=== PATIENT | male | born 1980 ===

== ENCOUNTER 2016-07-15 07:41 | Day surgery (SDC) | payer BC ==
[2016-07-15] VITALS (8 sets, daily range): BP systolic 91–136; BP diastolic 57–84
[~2016-07-15] VITALS: Ht 180.3 cm; Wt 93.0 kg
--- NOTE | 2016-07-15 06:46 | Pre-Procedure Note/Attestation ---
Pre-Procedure Note/Attestation Complete Prior to Procedure Planned Procedure: left Procedure Narrative: Left knee scope, ACL reconstruction, medial and lateral meniscectomy and possibly microfracture chondroplasty Indications for Procedure Pre-Operative Diagnosis: left knee ACL tear, medial and lateral meniscus tear Attestation I attest that I discussed the nature of the procedure; its benefits; risks and complications; and alternatives (and the risks and benefits of such alternatives ), prior to the procedure, with the patient (or the patient's legal client account representative). I attest that, if there was a reasonable possibility of needing a blood transfusion, the patient (or the patient's legal client account representative) was given the [place] [facility] [employer] [facility] standardized written summary, pursuant to the Maximino Watsessing Blood Safety Act ([place] Health and Safety Code # 1645, as amended). I attest that I re-evaluated the patient just prior to the surgery and that there has been no change in the patient's H&P, except as documented below: NONE VAN TOPETE July 15, 2016 06:46
--- NOTE | 2016-07-15 07:21 | Anethesia Preoperative Eval ---
Anesthesia Pre-op PMH/ROS General Date of Evaluation: July 15, 2016 Anesthesiologist: Pipo ASA Score: ASA 1 Mallampati Score Class I : Soft palate, uvula, fauces, pillars visible Class II: Soft palate, uvula, fauces visible Class III: Soft palate, base of uvula visible Class IV: Only hard plate visible Mallampati Classification: Class II Surgeon: Elizabeth Diagnosis: Left knee internal derangement Surgical Procedure: Left knee arthroscopy and ACL repair Anesthesia History: none Family History: no anesthesia problems Allergies: Coded Allergies: No Known Allergies (Unverified , 07/10/16) Medications: see eMAR Past Medical History Cardiovascular: Denies: CAD, HTN, [place], arrhythmia, other, valve dz Pulmonary: Denies: COPD, GINA, asthma, other Gastrointestinal/Genitourinary: Denies: CRI, ESRD, GERD, other Neurologic/Psychiatric: Denies: CVA, TIA, dementia, depression/anxiety, other Endocrine: Denies: DM, hypothyroidism, other, steroids HEENT: Denies: BENTON (L), [place] (R), cataract (L), cataract (R), glaucoma, other Hematology/Immune: Denies: DVT, anemia, bleeding disorder, other Musculoskeletal/Integumentary: Denies: DDD, DJD, OA, RA, edema, other PSxH Narrative: [place] teeth sx Anesthesia Pre-op Phys. Exam Physician Exam see chart Constitutional: NAD Cardiovascular: RRR Respiratory: CTA Airway Exam Mallampati Score: Class II MO: full ROM: full Teeth: intact Anesthesia Pre-op A/P Labs see chart Risk Assessment & Plan Assessment: ASA I Plan: GA Status Change Before Surgery: No Pre-Antibiotics Drug: Ancef 2g Given Within 1 Hr of Incision: Yes - 09 Time Given: 09:00 MARTIN BARBA M.D. July 15, 2016 07:21
[~2016-07-15 07:41] MED LIST: NKM; ceFAZolin 1gm/50ml Premix 50 ML IV ONE; celeBREX 200mg Cap **SURGERY PATIENTS ONLY ORAL ONE; oxyCONTIN 20mg tab ORAL ONE
[2016-07-15] MEDS ORDERED: Ropivacaine 5mg/ml Vial 20ml INJ ONE ×2 (07:45→09:07)
[2016-07-15] MEDS ORDERED: Lidocaine 1% Plain 30 ml INJ ONE (08:19)
[2016-07-15] MEDS ORDERED: Bupivacaine w/Epi 0.5% 30ml Vial INJ ONE (08:20)
[2016-07-15] MEDS ORDERED: EPINEPHrine 1mg/1ml Amp ONE (08:25)
[2016-07-15] MEDS ORDERED: LR 1000ml 1,000 ML IV SCH (08:30)
[2016-07-15] MEDS ORDERED: fentaNYL 250mcg/5ml ONE (08:45)
[2016-07-15] MEDS ORDERED: Metoclopramide 10mg/2ml Inj ONE (08:45)
[2016-07-15] MEDS ORDERED: Dexamethasone 4mg/ml vial ONE (08:45)
[2016-07-15] MEDS ORDERED: LR 1000ml ONE (08:45)
[2016-07-15] MEDS ORDERED: NS Irrig 4000ml IRRIG ONE (08:45)
[2016-07-15] MEDS ORDERED: Midazolam 2mg/2ml Inj ONE (08:45)
[2016-07-15] MEDS ORDERED: Propofol 10mg/ml 20ml IV ONE (08:45)
[2016-07-15] MEDS ORDERED: Lidocaine 1% MPF 10mg/ml 5ml ONE (08:45)
[2016-07-15] MEDS ORDERED: Ketamine 500mg Inj ONE (08:45)
[2016-07-15] MEDS ORDERED: LR 1000ml 1,000 ML IVLG SCH (09:12)
[2016-07-15] MEDS ORDERED: fentaNYL 100 mcg/2 mL IV PRN (09:15)
[2016-07-15] MEDS ORDERED: Hydromorphone 0.5mg/0.5ml inj IVP PRN (09:15)
[2016-07-15] MEDS ORDERED: Ketorolac 30mg Inj IV PRN (09:15)
[2016-07-15] MEDS ORDERED: DiphenhydrAMINE 50mg/ml Inj IVP PRN (09:15)
[2016-07-15] MEDS ORDERED: D5 1/2NS 1,000 ML IV SCH (09:45)
[2016-07-15] MEDS ORDERED: HYDROmorphone 1mg/ml Carpuject SUBQ PRN (09:45)
[2016-07-15] MEDS ORDERED: Norco 5mg/325mg tab ORAL PRN (09:45)
[2016-07-15] MEDS ORDERED: Tylenol #3 tab (300mg/30mg) ORAL PRN (09:45)
--- NOTE | 2016-07-15 10:43 | Brief Operative Note ---
Immediate Post Operative Note Operative Note Chief Complaint: left knee pain Pre-op Diagnosis: left knee ACL tear medial and lateral meniscus tear Procedure: left knee scope, ACL reconstruction, medial and lateral meniscectomy and chondroplasty Post-op Diagnosis: same as pre-op Findings: consistent w/pre-op dx studies Surgeon: md darrin Power Plant Operator: sai muniz Anesthesiologist: md navjot Anesthesia: general Specimen: none Complications: none Condition: stable Estimated Blood Loss: minimal Drains: none Implant(s) used?: Yes - biomet DENITA MUNIZ July 15, 2016 10:43
--- NOTE | 2016-07-15 10:55 | Immediate Post-Op Evaluation ---
Immediate Post-Op Evalulation Immediate Post-Op Evalulation Procedure: Left knee arthroscopy, ACL repair Date of Evaluation: July 15, 2016 Time of Evaluation: 10:56 IV Fluids: 1.1L Blood Products: 0 Estimated Blood Loss: min Urinary Output: 0 Blood Pressure Systolic: 91 Blood Pressure Diastolic: 57 Pulse Rate: 73 Respiratory Rate: 16 O2 Sat by Pulse Oximetry: 100 Temperature (Fahrenheit): 98 Pain Score (1-10): 0 Nausea: No Vomiting: No Complications 0 Patient Status: awake, reacts, patent, none Hydration Status: adequate Drug: Ancef 2g Given Within 1 Hr of Incision: Yes Time Given: 09:00 MARTIN BARAB M.D. July 15, 2016 10:55
--- NOTE | 2016-07-15 22:01 | Operative Note - Dictated ---
DATE OF OPERATION: 07/15/2016 SURGERY DATE: 07/15/2016 PREOPERATIVE DX: 1. Left knee anterior cruciate ligament tear. 2. Possible left knee lateral meniscus tear. 3. 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 POSTOPERATIVE DX: 1. Left knee loose fragment in the lateral gutter as well as suprapatellar pouch measuring 7 mm chondral loose fragments floating around the knee. 2. 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 3. Left knee complete anterior cruciate ligament tear. 4. Left knee lateral meniscus tearing involving 10% of junction of posterior horn body of lateral meniscus. 5. No evidence of medial meniscus tear. PROCEDURES: 1. Left knee arthroscopy and extensive intra-articular shaving. 2. Left knee resection of loose fragment suprapatellar pouch as well as lateral gutter. 3. Left knee chondroplasty of the trochlea with resection of unstable chondral flaps. 4. Left knee partial lateral meniscectomy involving 10% of the lateral meniscus at the junction of body and posterior horn. 5. Left knee anterior cruciate ligament reconstruction using tibialis anterior allograft, 10 mm graft with the femoral toggle lock fixation, and tibial AperFix II cannulated PEEK implant 10 x 30 mm. SURGEON: Jose Carlos Johnson M.D. HIGH SCHOOL SCIENCE TUTOR: Tawanna Teran PA-C. Process Design Chemical Engineer was present during the actual operative portion of the case and was important and essential part of the operation. During the operation, the administrative office assistant held and operated the arthroscopic camera for visualization, assisted by manipulating the leg to help with visualization, and helped with essential parts of the repair process as necessary such as operating surgical instruments under surgeon supervision, suture management, and wound closures. ANESTHESIOLOGIST: Dr. Edward. ANESTHESIA: General LMA anesthesia combined with femoral block for postoperative pain management. EBL: Less than 20 mL. TOURNIQUET TIME: 65 minutes. COMPLICATIONS: None. BRIEF HISTORY: The patient is a pleasant 4-year-old gentleman who sustained a left knee ACL tear. MRI showed ACL tear and possible medial and lateral meniscus tear. SURGICAL INDICATION: The patient is a 36-year-old male who sustained the above injury to his knee. The patient was treated non-operative initially, but this did not alleviate the patients symptoms. Therefore, after discussing all non-surgical and surgical options, and discussing all foreseeable risk and benefits of surgery, the patient opted for surgical treatment as described above. PATIENT POSITIONING: Patient was brought to the operating room table and placed supine. All pressure points were well padded. General Anesthesia was induced and a well padded tourniquet was placed on the thigh. The lateral post was placed and positioned to allow for opening of the medial compartment of the knee without placing pressure over the fibular head. Patients entire leg was prepped and draped in the usual sterile fashion. Time out was performed and preop abx was given and after exsanguinating the lower extremity, the tourniquet was inflated to 275 mm of mercury. EXAMINATION OF THE KNEE UNDER ANESTHESIA: Before prepping and draping the knee and while the patient was relaxed under general anesthesia, the knee was examined for ROM, and anterior and posterior, medial and lateral, posterolateral, and posteromedial instability. Pivot shift testing was performed. There was no loss of motion, although there was instability with positive anterior drawer and positive pivot shift testing. PORTAL PLACEMENT: The lateral portal was placed with the knee flexed to 90 degrees at the level of inferior border of the patella in line with the lateral border of the patella. A cm skin incision was made with an eleven blade, and using a blunt obturator, the capsule was gently penetrated. Sterile saline solution was then infused inside the knee with the aid of a pump set at 35 mm mercury pressure. Under direct visualization, placement of the medial portal was preliminary judged using a spinal needle, and it was subsequently established using the same technique as the lateral portal. Care was given not to injure the cutaneous branches of the medial Saphenous nerve or the subcutaneous veins. DIAGNOSTIC ARTHROSCOPY: The suprapatellar patellar pouch was visualized. There was a loose fragment in the suprapatellar pouch measuring 5 to 7 mm. The medial and lateral patellar facets and trochlear groove articular cartilage was visualized. There was a chondral damage on the trochlear groove without a stable chondral flap. This measured 2 x 2.5 cm. This was grade 4 chondromalacia. There was corresponding medial patellar facet chondral changes, but this was grade 2 chondromalacia. The medial plica shelf and the corresponding medial femoral condyle articular cartilage were visualized. There was no significantly thickening of the medial plica shelf and there were no kissing? lesion over the medial femoral condyle. The lateral gutter and the posterolateral corner of the knee were visualized. There was a loose fragment in the posterior lateral corner of the knee measuring 5 x 7 mm. At this point, the knee was placed in the figure of four position and the lateral compartment was entered. The lateral femoral condyle, lateral tibial plateau, and the anterior, body, and the posterior horn of the lateral meniscus were visualized and probed. There was some slight chondral damage over the lateral femoral condyle. There was no grade 4 chondromalacia however. There was a small tear at the junction of the posterior horn body of the lateral meniscus involving 10% to 15% lateral meniscus. The knee was then placed at 90 degree and the ACL and PCL were visualized and probed. There was a complete tear of the ACL. The PCL was completely intact on visualization and probing and it had excellent tension. The medial compartment was then entered and the medial femoral condyle, medial tibial plateau, and the anterior, body, and the posterior horn of the medial meniscus were visualized and probed. There was some chondral damage over the medial femoral condyle measuring 2 x 1 cm. There was some unstable chondral flap. This was grade 2 and 3 chondromalacia, but no grade 4 combination was noted. The medial meniscus was completely intact both on its undersurface and on the top. The medial gutter was visualized. There was no evidence of defect or loose fragments. The scope was then brought back to the patella femoral compartment. OPERATIVE ARTHROSCOPY: At this point, all loose debris and fragments were removed with the use of suction motorized shaver. Specific attention was given to assure all visible loose fragments were irrigated out of the knee joint with pump inflow and cannula outflow system. The loose fragments were identified and visualized. Using combination of the shaver, suction, and graspers, these loose fragments were removed. These loose fragments measured approximately 5 to 7 mm. All debris left behind was removed with combination of noah and graspers. The frayed articular cartilage of the undersurface of the patella and the trochlear groove were debrided using a motorized shaver. Suction was used to pull in the loose fragments and flaps of the cartilage and to minimize damage to the intact and well attached portion of the cartilage. This allowed for a smooth surface for the articular cartilage gliding. At this point, attention was given to the lateral meniscus. Using combination of baskets and noah, the torn portion of the lateral meniscus was removed. Attention was given to remove all displaced and unstable portion of the lateral meniscus while maintaining as much of the functional portion of the meniscus as possible. Approximately, 15% of the posterior horn body of the meniscus was removed in this fashion. The transition between the meniscectomy portion and intact portion of the meniscus was smoothed out with combination of small baskets and noah. Excellent transition zone was obtained in this fashion. Pursuant to preoperative discussion with the patient, an allograft was used for ACL reconstruction. A 28 cm medium sized non-irradiated allograft was obtained from the tissue bank. The graft was defrosted in warm saline solution in its plastic wrapping. The graft was then cultured and subsequently placed in a triple antibiotic solution prior to handling. The graft was then trimmed to total length of 220 mm. The two ends of the graft were secured with #2 FiberWire sutures placed using modified Krackaw technique up to 25 mm proximal to each end. All slack was removed from the stitched portion and the graft was placed on a graft tensioner wrapped in antibiotic soaked sponges in a safe place on the back table. Attention was then given to ACL reconstruction. The ACL remnant off of the tibial foot print and femoral notch was completely resected using a combination of suctioned electrocautery and noha. Care was given not to damage the transverse inter-meniscal ligament. Minimal notchplasty was performed using an aggressive 5.5 mm shaver just to be able to gain access and view the ACL attachment in the posterior aspect of the notch. The interns ridge was identified and debrided. The posterior aspect of the notch was then identified. This area was first debrided using a shaver and later cleaned off using a combination of curved curettes and noah. This area was probed to assure that the most posterior aspect of the notch is identified and there is no more bone posteriorly. Care was given not to damage the neurovascular bundle in the posterior compartment of the leg. At this point, the scope was removed and using a #15 blade, a 2 cm incision was made on the medial face of the tibia approximately at the level of the tibial tubercle. Using a tibial tunnel guide, the position of entry of the guide wire into the knee joint was approximated. The guide was placed on the foot print of previous ACL stump at the medial half of the intertubercle groove to allow the pin to enter the knee joint in the tibial anatomical footprint of the ACL. A guide wire was first placed and the tibial hole was then drilled using a drill. The tibial tunnel was then dilated up to 2 mm using standard dilators at millimeter increments up to the final size of 10 mm. Care was given not to fracture any portion of the tunnel during this process. Once this was completed, a 10 mm femoral tunnel was drilled on the anatomical femoral attachment of the ACL, slightly laterally and inferiorly to the over the top position to allow for rotational stability. The femoral tunnel was drilled up to 35 mm deep. At this point, a Biom[employer]ucmi ToggleLoc device was used for femoral fixation. A guide wire was passed thru the femoral tunnel and exited the lateral cortex of the femur and out of the soft tissue and grasp using a cocker. The 3.5 mm drill was used to drill the cortex and while the graft was loaded on the Toggle lock devise, it was then pulled up through the tibial tunnel into the joint and then into the femoral tunnel smoothly using the described technique and the metallic devise was flipped to allow security of the graft. The security of the graft was checked by pulling on the graft multiple times thru the femoral tunnel and assuring that the graft is firmly fixed. The graft was then tensioned by apply approximately 20 lb of traction and and cycling the knee 20 times through full flexion and extension to take out all of the looseness in the graft. At this point, the graft was stabilized in the tibial tunnel with a AperFix II cannulated tibial PEEK implant 10 mm placed anterior to graft into the tibial tunnel. This was performed while keeping tension on the graft and applying a gentle posterior drawer to the knee. After completion of the fixation, anterior drawer and Janes testing were negative and pivot shift was not present. The scope was then placed back into the knee to visualize the graft. There was excellent position of the graft, and upon probing, the graft appeared to have excellent tension. Anterior drawer testing with scope in the knee revealed excellent stability. The knee was brought up to hyperextension and there was no evidence of graft impingement on the notch. CONDITION AT DISCHARGE FROM OPERATING ROOM: The knee was irrigated with copious amount of normal saline at the end of the procedure. The scope was removed and the water was drained. The skin edges were re-approximated and sterile dressing was applied. All lap count and instrument counts were correct. Patient tolerated the procedure well without complications and was taken to the recovery room in stable conditions. Jose Carlos Johnson M.D. DR: RACHEL JOB#: [id number] CC:
[2016-07-16 06:49] VITALS: BP 133/84
--- NOTE | 2016-07-16 06:49 | 48 Hour Post Anesthesia Eval ---
Post Anesthesia Evaluation Procedure: Left knee arthroscopy, ACL repair Date of Evaluation: July 15, 2016 Time of Evaluation: 13:10 Blood Pressure Systolic: 133 0: 84 Pulse Rate: 80 Respiratory Rate: 18 Temperature (Fahrenheit): 97.2 O2 Sat by Pulse Oximetry: 97 Airway: patent Nausea: No Vomiting: No Pain Intensity: 0 Hydration Status: adequate Cardiopulmonary Status: at baseline Mental Status/LOC: patient returned to baseline Post-Anesthesia Complications: 0 Follow-up care needed: ready to discharge MARTIN BARBA M.D. July 16, 2016 06:49
== END 2016-07-15 13:00 | disposition home or self-care (01) ==
LOC: SUR 07:41
DX: M23.8X2 Other internal derangements of left knee (principal); M23.252 Derangement of posterior horn of lateral meniscus due to old tear or injury, left knee; M94.262 Chondromalacia, left knee; M23.42 Loose body in knee, left knee
CPT/HCPCS: 29881; 29888; J0171; J0690; J1100; J2250; J2405; J2704; J2765; J2795; J3010; J3490; J7120; 94003; 94150

== ENCOUNTER 2016-08-14 10:30 | Outpatient (RCR) | payer BC ==
[~2016-08-14 10:30] MED LIST changes: -ceFAZolin 1gm/50ml Premix 50 ML IV ONE; -celeBREX 200mg Cap **SURGERY PATIENTS ONLY ORAL ONE; -oxyCONTIN 20mg tab ORAL ONE
== END 2016-08-29 | disposition home or self-care (01) ==
LOC: PTY 10:30
DX: M23.52 Chronic instability of knee, left knee (principal); M23.232 Derangement of other medial meniscus due to old tear or injury, left knee
CPT/HCPCS: 97110; 97140; 97161; G0283

== ENCOUNTER 2016-09-05 09:15 | Outpatient (RCR) | payer BC | END 2016-09-29 | disposition home or self-care (01) | LOC: PTY 09:15 | DX: M23.232 Derangement of other medial meniscus due to old tear or injury, left knee (principal) ==

== ENCOUNTER 2016-10-23 08:30 | Outpatient (RCR) | payer BC | END 2016-10-30 | disposition home or self-care (01) | LOC: PTY 08:30 | DX: M23.232 Derangement of other medial meniscus due to old tear or injury, left knee (principal) ==